=== PATIENT | male | born 1980 | race Caucasian/White ===

== ENCOUNTER 2017-09-01 22:54 | Emergency (ER) | payer OTHER ==
[~2017-09-01] VITALS: Ht 185.4 cm; Wt 174.6 kg
[2017-09-01 22:57] VITALS: Ht 185.4 cm; Wt 174.6 kg
[2017-09-02 00:49] VITALS: BP 147/89
== END 2017-09-02 00:49 | disposition home or self-care (01) ==
LOC: ED 22:54
DX: M54.5 Low back pain (principal); M79.7 Fibromyalgia
CPT/HCPCS: J1885

== ENCOUNTER 2017-09-04 21:54 | Emergency (ER) | payer OTHER ==
[~2017-09-04] VITALS: Ht 185.4 cm; Wt 167.8 kg
[2017-09-04 23:00] VITALS: Ht 185.4 cm; Wt 167.8 kg
[2017-09-05 06:06] VITALS: BP 168/87
== END 2017-09-05 06:06 | disposition home or self-care (01) ==
LOC: ED 21:54
DX: M54.42 Lumbago with sciatica, left side (principal); I10 Essential (primary) hypertension; M79.7 Fibromyalgia
CPT/HCPCS: J1100; J1885; J2270